=== PATIENT | male | born 1950 | race Caucasian/White ===

== ENCOUNTER 2024-01-11 06:57 | Emergency (ER) | payer OTHER, SELFPAY ==
[2024-01-11 07:06] VITALS: BP 130/80
--- NOTE | 2024-01-11 07:47 | ED.GENMED ---
History of Present Illness
General
Chief Complaint: Back Pain
Source: patient
Exam Limitations: none
Time Seen by Provider: 01/11/24 07:25
History of Present Illness
History of Present Illness:
73-year-old male presents complaining of left upper scapular pain ongoing for about a week. Sharp stabbing in nature and intermittent. Occasionally worse with deep breathing. Also is made worse with motion. Was preceded by pain that was in the
left leg. The left leg pain is gone. No recent travel or surgery. No leg swelling. He is a pud-axalceh-bwwozkfzs diabetic. He states his pain started while doing exercises in the gym. He tried muscle relaxers and slwm-qjz-nvlkddj's without any
relief. He denies a cough or hemoptysis
Past History
Past History
ED Past Medical History: NIDDM and Other (kidney stones)
Social History
Tobacco: Non-smoker
Personal:
Living: with family
Employment: Employed
Phy Exam
Physical Exam
Physical Exam:
General: Well-appearing male no acute respiratory distress
HEENT: Normocephalic atraumatic
Heart: Regular rate and rhythm no murmurs
Lungs: Clear no wheeze
Abdomen soft nontender nondistended
Extremities: No cyanosis
Musculoskeletal exam: Slightly reproducible pain to the medial left scapula and paraspinous area of the lower cervical and upper thoracic spine
Skin is intact without rash
Course
Orders/Labs/Results
Orders:
Orders
01/11/24 07:52
Complete Blood Count/With Diff Urgent
Comprehensive Metabolic Panel Urgent
D-Dimer Urgent
01/11/24 08:24
CR Thoracic Spine 3 Views Urgent
Comment:
Reason For Exam: upper back pain
01/11/24 08:34
Ketorolac [Toradol] 15 mg IV NOW STA
Abnormal Lab Results
01/11/24
07:52
Absolute Monos (auto) 0.8 H 10^3/uL
(0.1-0.6)
Immature Gran % 0.6 H %
(0-0.5)
Monocytes % 11.2 H %
(1.7-9.3)
Eosinophils % 6.1 H %
(0-6)
BUN 32 H mg/dl
(9-20)
Glucose 126 H mg/dl
(70-99)
Calcium 10.3 H mg/dl
(8.4-10.2)
01/11/24 07:52
01/11/24 07:52
Vital Signs
Initial and Last Documented VS:
Initial Vital Signs
Temp Pulse Resp BP Pulse Ox
97.9 F 73 18 130/80 98
01/11/24 07:06 01/11/24 07:06 01/11/24 07:06 01/11/24 07:06 01/11/24 07:06
Last Documented Vital Signs
Temp Pulse Resp BP Pulse Ox
97.9 F 68 18 133/81 97
01/11/24 07:06 01/11/24 09:30 01/11/24 09:30 01/11/24 09:00 01/11/24 09:30
MDM/Problems Addressed
Differential Diagnosis Includes:
Scapular pain. Question musculoskeletal pain versus PE versus radiculopathy
Patient does describe leg discomfort prior to the onset of his scapular pain. D-dimer will be ordered.
*Critical Care Note
Total Time (30-74mins, 75-104mins- exclusive of procedures): Not Applicable
Update Note
Update Note:
X-rays thoracic spine negative for acute finding. Suspect muscular strain. Patient is in significant pain despite zard-kks-cnlnbmr medications. He did receive some relief with Toradol. Recommended continued NSAIDs but will prescribe a limited
supply of Percocet for his pain
ED Attending Note
-
Portions of this chart may have been created with voice recognition software.� Occasional wrong word or��sound alike� substitutions may have occurred due to the inherent limitations of voice recognition software.
Discharge Plan
Departure
Patient Disposition: Home (Routine Discharge)
Date of Disposition: 01/11/24
Time of Disposition: 11:00
Patient with high blood pressure during this ER visit?: No
Discharge Problem:
Acute thoracic myofascial strain
Instructions: Upper Back Pain (DC), Radiculopathy (DC)
Prescriptions:
New
oxycodone-acetaminophen [Percocet] 5-325 mg tablet
1 tab PO TID PRN (Reason: Pain) Qty: 10 0RF
No Action
Actos Plus Met
1 tab PO BID
Patient Comments:
15/850mg
aspirin 81 MG tablet,delayed release (DR/EC)
81 mg PO DAILY
hydrochlorothiazide 25 MG tablet
25 mg PO DAILY
olmesartan [Benicar] 40 MG tablet
40 mg PO DAILY
Fish Oil
1,000 mg PO DAILY
Flaxseed Oil
1,200 mg PO DAILY
Sun Chlorella
8 tab PO DAILY
Patient Comments:
200 mg tabs
Vitamin D3
2,000 mg PO DAILY
vitamin E
400 mg PO DAILY
metformin 500 mg Tablet
500 mg 4XD
olmesartan [Benicar] 40 mg Tablet
40 mg PO DAILY
rosuvastatin [Crestor] 20 mg Tablet
20 mg PO DAILY
Super Enzyme
500 mg 1XD
tamsulosin 0.4 mg capsule
0.4 mg PO DAILY Qty: 30 0RF
phenazopyridine [Pyridium] 100 mg tablet
100 mg PO BID Qty: 30 0RF
levofloxacin 500 mg tablet
500 mg PO DAILY Qty: 5 0RF
tramadol 50 mg tablet
50 mg PO TID PRN (Reason: Pain) Qty: 30 0RF
betamethasone dipropionate 0.05 % cream
1 applic topical DAILY Qty: 45 3RF
Referrals:
Ye Weber MD [Family Provider] -
Activity Restrictions/Additional Instructions:
Consider following up with chiropractor as planned. Continue with Motrin [id number]-[id number]. A prescription was sent for stronger pain medicine if needed. Return if worse otherwise
Interventions
Interventions:
*Risk Screen - Suicide Last Done: 01/11/24 07:06
*General Assessment Last Done: 01/11/24 07:06
*Neglect/Abuse Screening Last Done: 01/11/24 07:06
ED- Fall Risk Assessment Last Done: 01/11/24 07:38
*ED COVID-19 Vaccine History Last Done: 01/11/24 07:11
ED-Musculoskeletal Assessment Last Done: 01/11/24 07:38
Discharge Date and Time
Print Language: ANGUILLAN
[2024-01-11 08:04] LABS: % Basophils 0.7 % (0-2); % Eosinophils 6.1 % (0-6); % Immature Granulocytes 0.6 % (0-0.5); % Lymphocytes 25.8 % (20.5-51.1); % Monocytes 11.2 % (1.7-9.3); % Neutrophils 55.6 % (42.2-75.2); Absolute Basophils 0.1 10^3/uL (0-0.2); Absolute Eosinophils 0.4 10^3/uL (0-0.7); Absolute Lymphocytes 1.9 10^3/uL (1.2-3.4); Absolute Monocytes 0.8 10^3/uL (0.1-0.6); Hematocrit 43.4 % (39.0-52.0); Hemoglobin 14.8 g/dL (13.0-18.0); Mean Corp Hgb Conc. 34.1 g/dL (33.0-37.0); Mean Corpuscular Hgb 28.5 pg (27.0-31.0); Mean Corpuscular Volume 83.5 fL (80.0-94.0); Mean Platelet Volume 8.9 fL (7.4-10.4); Nucleated Red Blood Cells % 0 % (-); Platelet Count 331 10^3/uL (130-400); Red Cell Dist. Width 13.6 % (11.5-14.5); White Blood Cell Count 7.2 10^3/uL (4.8-10.8)
[2024-01-11 08:11] VITALS: BP 128/77
[2024-01-11 08:13] LABS: ALT (SGPT) 48 U/L (0-50); AST (SGOT) 46 U/L (17-59); Albumin 4.7 g/dl (3.5-5.0); Alkaline Phosphatase 50 U/L (38-126); Blood Urea Nitrogen 32 mg/dl (9-20); Calcium 10.3 mg/dl (8.4-10.2); Carbon Dioxide 28 mmol/L (22-30); Chloride 101 mmol/L (98-107); D-Dimer < 0.27 ug/mlFEU (0.00-0.50); Glucose 126 mg/dl (70-99); Potassium 4.1 mmol/L (3.5-5.1); Sodium 141 mmol/L (135-145); Total Bilirubin 0.9 mg/dl (0.2-1.3); Total Protein 7.2 g/dl (6.3-8.2); eGFR > 60.00
[2024-01-11] MEDS: TORADOL 15 MG IV (08:49)
[2024-01-11 09:00] VITALS: BP 133/81
[2024-01-11 10:00] VITALS: BP 127/77
[2024-01-11 11:01] VITALS: BP 144/81
== END 2024-01-11 11:29 | disposition home or self-care (01) ==
LOC: EMR 06:57
PROVIDERS: Physician Assistant; EMERGENCY PHYSICIAN Student in an Organized Health Care Education/Training Program; FAMILY PHYSICIAN Family Medicine
DX: S29.012A Strain of muscle and tendon of back wall of thorax, initial encounter (principal); X50.9XXA Other and unspecified overexertion or strenuous movements or postures, initial encounter; E11.9 Type 2 diabetes mellitus without complications
CPT/HCPCS: 99284; 96374; 72072; 80053; 85025; 85379

== ENCOUNTER → 2024-01-31 09:16 | Outpatient (REF) | payer OTHER, SELFPAY | LOC: HWRAD 09:16 | PROVIDERS: ATTENDING PHYSICIAN Specialist; FAMILY PHYSICIAN Family Medicine | DX: N20.0 Calculus of kidney (principal) | CPT/HCPCS: 74018; 76775 ==